=== PATIENT | male | born 1985 | race Caucasian/White ===

== ENCOUNTER 2018-10-08 11:49 | Day surgery (SDC) | payer OTHER ==
[~2018-10-08 11:49] MED LIST: ACETAMINOPHEN 1,000 MG/100 ML RTUPB IV ONE; BUPIVACAINE HCL 0.5 % INJ/PF 30 ML SDV ONE; CEFAZOLIN 2 GM/D5W RTU 2 GM/50 ML RTUPB IV ONE; CEFAZOLIN 2 GM/D5W RTU 2 GM/50 ML RTUPB IV PRN; DEXAMETHASONE SOD PHOSPHATE INJ 4 MG/1 ML VIAL ONE; FENTANYL CITRATE INJ/PF 100 MCG/2 ML AMPUL ONE; LIDOCAINE 1% INJ-PF (10 MG/ML) 30 ML SDV ONE; MIDAZOLAM 2 MG/2 ML INJ ONE; ONDANSETRON HCL INJ/PF 4 MG/2 ML SDV ONE; PROPOFOL INJ 200 MG/20 ML VIAL IV ONE; SUCCINYLCHOLINE CHLORIDE INJ 200 MG/10 ML VIAL ONE
[2018-10-08] MEDS ORDERED: MEPERIDINE HCL/PF INJ 25 MG/1 ML DISP.SYRIN IV PRN (14:13)
[2018-10-08] MEDS ORDERED: MORPHINE SULFATE 10 MG/ML INJ IV PRN ×2 (14:13→16:50)
[2018-10-08] MEDS ORDERED: FENTANYL CITRATE INJ/PF 100 MCG/2 ML AMPUL IV PRN ×3 (14:13)
[2018-10-08] MEDS ORDERED: PROMETHAZINE HCL INJ 25 MG/1 ML VIAL IV PRN ×2 (14:13)
[2018-10-08] MEDS ORDERED: DIPHENHYDRAMINE HCL 50 MG/ML VIAL IV PRN (14:13)
[2018-10-08] MEDS ORDERED: ONDANSETRON HCL INJ/PF 4 MG/2 ML SDV IV PRN ×2 (14:13→16:50)
[2018-10-08] MEDS ORDERED: OXYCODONE-ACETAMINOPHEN 5-325 MG TABLET PO PRN (16:50)
--- NOTE | 2018-10-08 16:50 | Discharge Summary ---
Discharge Summary (SDC) - Discharge Final Diagnosis: Right thumb, middle and ring finger laceration status post chain saw injury Date of Surgery: 10/08/18 Discharge Date: 10/08/18 Condition: Good Forms: ASU Anesthesia D/C Instruction, Discharge POC-Surgical Service Treatment or Instructions: Schedule Follow Up w/ Dr. Orlin Dhaliwal @ [facility] for Surgery to be seen in 10-14 days or as scheduled [place]: [place]: [place]: Ice and elevate Keep splint clean/dry/intact. If your fingers become numb please unwrap the Rod wrap but leave the splint in place, if the sensation does not return within 30 minutes please return to the emergency department. May begin finger range of motion of nonaffected digits Please use ibuprofen (Motrin or Advil) 600-800 mg every 8 hours as needed for pain or fever DO NOT TAKE w/ TORADOL may use once TORADOL complete. You may also use acetaminophen (Tylenol) 1000 mg every 4-6 hours as needed for pain or fever. Please be aware that many medications contain acetaminophen, do not exceed a total of 1000 mg of acetaminophen every 6 hours. If ibuprofen and acetaminophen are not sufficient for your pain you may take the Percocet/Michael. Please be aware that the Percocet/Michael does contain Tylenol. Stool softener of choice when on pain medication. USE OF [id number]-[id number]-[id number] IBUPROFEN: Ibuprofen (Advil, Nuprin, Medipren, Motrin IB) is a medication for fever and pain control. In addition, it has anti- inflammatory effects which may be beneficial, especially in the treatment of injuries. It's best to take ibuprofen with food. Persons with ulcer disease or allergy to aspirin should notify their physician of this before taking ibuprofen. Ibuprofen can be given every four to six hours, for a total of four doses daily. Age Pain or fever dose Antiinflammatory dose 6-8 yr 200 mg (1 tab) 200 mg (1 tab) 9-11 yr 200 mg (1 tab) 200-400 mg (1-2 tab) 11-14 yr 200-400 mg (1-2 tab) 400 mg (2 tab) 15-adult 400 mg (2 tab) 600 mg (3 tab) ORAL NARCOTIC MEDICATION: You have been given a prescription for pain control. This medication is a narcotic. It's best taken with food, as nausea can result if taken on an empty stomach. Don't operate machinery or drive within six hours of taking this medication. Do not combine this medicine with alcohol, or with any medication which can cause sedation (such as cold tablets or sleeping pills) unless you get permission from the physician. Narcotics tend to cause constipation. If possible, drink plenty of fluids and eat a diet high in fiber and fruits. Please be aware that prescription narcotics also have the potential for abuse. People become addicted to these medications because of the general sense of wellbeing that they induce. This feeling along with a significant reduction in tension, anxiety, and aggression provides a stimulating seductive quality to these drugs. Once your pain is under control, we encourage you to discard your unused narcotics. Prescriptions: Ketorolac Tromethamine [Toradol 10 mg Tablet] 10 mg PO Q8HP PRN #12 tablet PRN Reason: Oxycodone HCl/Acetaminophen [Percocet 7.5-325 mg Tablet] 1 - 2 tab PO Q6 PRN #25 tab PRN Reason: Referrals: ORLIN DHALIWAL DO [ACTIVE STAFF] - 10/22/18 9:40 am Respiratory Treatments at Home: Deep Breathing/Coughing Discharge Activity: No Lifting Over 10 Pounds, No Lifting/Push/Pulling Report the Following to Your Physician Immediately: Fever over 101 Degrees, Unusual Bleeding, Redness, Swelling, Warmth
--- NOTE | 2018-10-08 16:50 | Operative Report ---
Operative Report DATE OF SURGERY: 10/08/18 PREOPERATIVE DIAGNOSIS: Right hand thumb, middle and ring finger laceration sta tus post chainsaw injury POSTOPERATIVE DIAGNOSIS: 1. FDP laceration right middle finger. 2. Radial digital nerve laceration right middle finger. 3. Ulnar digital nerve la ceration right thumb OPERATION: 1. Repair FDP zone room 2 right middle finger. 2. Repair radial digital nerve right middle finger with nerve allograft 15 mm. 3. Repair ulnar digital nerve thumb with nerve allograft 15 mm. 4. Complex repair complex closure right ring finger with rotational flap SURGEON: KASHIF DHALIWAL ANESTHESIA: GA COMPLICATIONS: None ESTIMATED BLOOD LOSS: Minimal PROCEDURE: Indication for above procedure: 32-year-old male who sustained a self-inflicted chainsaw injury to his right hand inadvertently. Patient was seen at the [facility] where irrigation debridement and closure was performed. Was started on p.o. antibiotics. Operative findings demonstrated flexor tendon involvement of the ring and middle finger along with possible nerve involvement of the thumb. Patient was seen at my office at which point we discussed treatment options given the severity of his injury decision was made to proceed with operative intervention. Risks and benefits were explained patient verbalized understanding consented for the procedure. Procedure In Detail: Patient was seen and evaluated in the preoperative holding area. The RIGHT upper extremity was initialized and marked. Patient received 2g of Ancef IV for bacterial prophylaxis. Patient was taken back to the operative room where transferred to the operative table and placed under general anesthesia. Once they were adequately anesthetized a nonsterile tourniquet was placed on the upper extremity. A surgical team debriefing was performed ensuring all instrumentation was available, the surgical procedure was discussed with possible concerns reviewed. The upper extremity was prepped with Betadine and draped in a sterile fashion. A timeout was done identifying correct patient, procedure and extremity everyone in attendance agree with this and verbalized no concerns. The extremity was exsanguinated the tourniquet was inflated to 250 mmHg. Middle finger wound was debrided and extended proximally and distally with Domenica incisions and a midline incision at the distal phalanx. Blunt dissection was performed. There was laceration of the ulnar digital nerve with a 15 mm nerve gap. There was complete laceration of the FDP with intact vincula and FDS. FDP was retracted to approximately the middle phalanx. The FDP was repaired with a M-Rain technique 6 stranded with 4-0 fiber loop and a 6-0 Prolene epitendinous suture. There is no evidence of gap formation with passive range of motion. Ring finger wound was reviewed. There was notable soft tissue loss of approximately 1 cm x 1 cm at the level of the middle phalanx. There was mild contamination. The radial and ulnar neurovascular bundles were identified without disruption. There is no disruption of the FDP or FDS tendon. A large rotational flap extending to the MCP joint flexion crease was performed and undermined to obtain adequate excursion to allow complete closure with 4-0 nylon suture. The thumb was then exposed and extended proximally and distally with Domenica i ncisions. No evidence of FPL disruption over the was complete laceration of the ulnar digital nerve at the level of the trifurcation. 3 branches at the trifurcation were neurolysed and identified. Proximal and distal edges of the laceration respectively were debrided to normal-appearing fascicles. A 1-2 mm x 30 mm nerve graft was followed on the back table and cut into 250 mm segments to allow nerve repair of the middle finger and thumb. The nerve graft was repaired with a epineural 9-0 and reinforced with fibrin glue. There is no evidence of gapping with flexion or extension and nerve repair was performed without tension. The radial digital nerve of the middle finger was then repaired with the Axogen allograft reapproximated with 9-0 and reinforced with fibrin glue once again there is no evidence of gapping with flexion/extension and a tensionless repair was performed. The wound was then copiously irrigated with normal saline. Skin incisions were closed with interrupted 4-0 nylon suture. Tourniquet was deflated patient had good peripheral perfusion and normal skin turgor. 20 cc of 0.5% bupivacaine without epinephrine was injected for postoperative pain control performing a carpal tunnel block. Patient was placed in a dorsal blocking splint with the wrist in neutral position MP joints at 60 degrees of flexion and a thumb spica extension. Sponge counts, instrument counts, needle counts were correct. Patient was then awoken from anesthesia. Transferred from the operating room table to the operating room stretcher. There was no intraoperative complications patient tolerated procedure well stable to PACU. Postoperative plan: Patient will be set up for occupational therapy to begin 5-7 days postop the as per [facility]'s protocol for flexion tendon repair zone ii. Patient will follow- up with wi in 2 weeks for wound check.
[2018-10-08] MEDS ORDERED: OXYCODONE-ACETAMINOPHEN 5-325 MG TABLET ONE (17:20)
[2018-10-08 19:34] VITALS: BP 137/78
== END 2018-10-08 18:30 | disposition home or self-care (01) ==
LOC: OROUT 11:49
PROVIDERS: ATTEND Orthopaedic Surgery
DX: S66.122A Laceration of flexor muscle, fascia and tendon of right middle finger at wrist and hand level, initial encounter (principal); S64.31XA Injury of digital nerve of right thumb, initial encounter; S64.01XA Injury of ulnar nerve at wrist and hand level of right arm, initial encounter; S61.011A Laceration without foreign body of right thumb without damage to nail, initial encounter; S61.210A Laceration without foreign body of right index finger without damage to nail, initial encounter; S61.212A Laceration without foreign body of right middle finger without damage to nail, initial encounter; S61.214A Laceration without foreign body of right ring finger without damage to nail, initial encounter; W31.2XXA Contact with powered woodworking and forming machines, initial encounter; F17.210 Nicotine dependence, cigarettes, uncomplicated
CPT/HCPCS: 26356; 64910 ×2; 13131; C9250; C1769; J2250; J3490; J1100; J3010; J0330; J2405; J2704; J0690; J0131; 1810